=== PATIENT | female | born 1985 | race Caucasian/White ===

== ENCOUNTER → 2017-10-15 | Outpatient (CLI) | payer OTHER ==
--- NOTE | 2017-10-15 10:11 | Diagnostic Imaging Report ---
PROCEDURE: US Gallbladder. TECHNIQUE: Multiple Real-time grayscale images were obtained over the right upper quadrant in various projections. INDICATION: Abdominal pain and dyspepsia. FINDINGS: The liver measures 19 cm. There are no focal liver lesions. There is no biliary ductal dilatation. The common bile duct measures 5.2 mm. There is no cholelithiasis, gallbladder wall thickening, or pericholecystic fluid. The visualized portions of the pancreas are unremarkable. The right kidney is normal in appearance. There is no ascites. The aorta and IVC are not well visualized. IMPRESSION: Unremarkable right upper quadrant ultrasound. Dictated by: Dictated on workstation # [id number]
== END ==
LOC: RAD 08:32
PROVIDERS: ATTEND Nurse Practitioner Family
DX: R10.13 Epigastric pain (principal)
CPT/HCPCS: 76705